=== PATIENT | male | born 1950 | race Caucasian/White ===

== ENCOUNTER 2018-08-23 07:02 | Emergency (ER) | payer MEDICARE, BC ==
[2018-08-23 07:21] VITALS: BP 132/88
--- NOTE | 2018-08-23 07:48 | UC ---
Ear Complaint HPI - HPI Summary HPI Summary: congestion and cough. There is ear pressure. No fever. there is hoarseness. - History of Current Complaint Chief Complaint: UCRespiratory Stated Complaint: SINUSES, CONGESTION, COUGH Time Seen by Provider: 08/23/18 07:35 Hx Obtained From: Patient Onset/Duration: Gradual Onset, Lasting Days Severity Initially: Moderate Severity Currently: Moderate Pain Intensity: 0 Aggravating Factors: Nothing Alleviating Factors: Nothing Associated Signs/Symptoms: Positive: URI Symptoms - Allergies/Home Medications Allergies/Adverse Reactions: Allergies Allergy/AdvReac Type Severity Reaction Status Date / Time No Known Allergies Allergy Verified 08/23/18 07:18 PMH/Surg Hx/FS Hx/Imm Hx Previously Healthy: No - No prior lung disease or asthma and no heart disease. - Surgical History Surgical History: Yes Surgery Procedure, Year, and Place: Right knee surgery. Bowel resection d/t colon Ca - Family History Known Family History: Positive: Non-Contributory - Social History Alcohol Use: Occasionally Substance Use Type: None Smoking Status (MU): Never Smoked Tobacco Review of Systems All Other Systems Reviewed And Are Negative: Yes ENT: Positive: Sore Throat, Ear Ache, Sinus Congestion. Negative: Sinus Pain/ Tenderness Respiratory: Positive: Cough Physical Exam Triage Information Reviewed: Yes Appearance: Well-Appearing, No Pain Distress, Well-Nourished Vital Signs: Initial Vital Signs Temp 98.3 F 08/23/18 07:18 Pulse 92 08/23/18 07:18 Resp 17 08/23/18 07:18 BP 132/88 08/23/18 07:18 Pulse Ox 98 08/23/18 07:18 Vital Signs Reviewed: Yes Eyes: Positive: Conjunctiva Clear. Negative: Conjunctiva Inflamed ENT: Positive: Pharynx normal, Nasal congestion, TM dull, Hoarse voice, Uvula midline. Negative: Nasal drainage, TM bulging, TM red, Tonsillar swelling, Tonsillar exudate, Trismus, Muffled voice, Dental tenderness, Sinus tenderness Neck: Positive: Supple, Nontender, No Lymphadenopathy Respiratory: Positive: Chest non-tender, Lungs clear, Normal breath sounds, No respiratory distress, No accessory muscle use. Negative: Respiratory distress, Decreased breath sounds, Accessory muscle use, Crackles, Rhonchi, Stridor, Wheezing Cardiovascular: Positive: RRR, No Murmur, Pulses Normal, Brisk Capillary Refill. Negative: Tachycardia, Bradycardia Abdomen Description: Positive: No Organomegaly, Soft. Negative: Distended, Guarding Musculoskeletal: Positive: Strength Intact, ROM Intact, No Edema Neurological: Positive: Alert, Muscle Tone Normal. Negative: Fatigued Psychological: Positive: Age Appropriate Behavior Skin: Negative: Rashes Ear Complaint Course/Dx - Differential Dx/Diagnosis Provider Diagnosis: Viral URI with cough Discharge - Sign-Out/Discharge Documenting (check all that apply): Patient Departure All imaging exams completed and their final reports reviewed: No Studies - Discharge Plan Condition: Good Disposition: HOME Prescriptions: Acetaminop/Codeine 30 MG TAB* [Tylenol/Codeine 30 MG TAB*] 1 tab PO BEDTIME PRN #7 tab MDD 1 PRN Reason: Cough Benzonatate CAP* [Tessalon 100 MG CAP*] 100 mg PO TID PRN #20 cap PRN Reason: Cough DOXYcycline CAP(*) [DOXYcycline 100MG CAP(*)] 100 mg PO DAILY #20 cap Patient Education Materials: Upper Respiratory Infection (ED) Referrals: Brain Dennis MD [Primary Care Provider] - If Needed - Billing Disposition and Condition Condition: GOOD Disposition: Home
== END 2018-08-23 07:49 | disposition home or self-care (01) ==
LOC: UCCORT 07:02
DX: J06.9 Acute upper respiratory infection, unspecified (principal); R05 Cough
CPT/HCPCS: 99202; G0463

== ENCOUNTER 2019-01-31 19:32 | Emergency (ER) | payer MEDICARE, BC ==
[2019-01-31 19:51] VITALS: BP 141/81
[2019-01-31] MEDS ORDERED: Sulfamethox/Trimethoprim DS 800/160* TAB PO ONE (19:58)
--- NOTE | 2019-01-31 20:00 | UC ---
Complaint Male HPI - HPI Summary HPI Summary: 69-year-old male comes in with a chief complaint of chills and burning with urination for the last 2 days. Also has some low back pain. Denies any anterior abdominal pain. Bowels been normal has not seen any blood in his stools. Patient reports he had a urinary tract infection about 15 years ago and this symptoms remind him of urinary tract infection. - History of Current Complaint Chief Complaint: UCGU Stated Complaint: CHILLS/URINARY Time Seen by Provider: 01/31/19 19:47 Pain Intensity: 0 - Allergies/Home Medications Allergies/Adverse Reactions: Allergies Allergy/AdvReac Type Severity Reaction Status Date / Time No Known Allergies Allergy Verified 01/31/19 19:51 Home Medications: Home Medications Sildenafil (NF) [Viagra (NF)] 25 mg PO SEE INSTRUCTIONS 01/31/19 [History Confirmed 01/31/19] PMH/Surg Hx/FS Hx/Imm Hx Previously Healthy: Yes - BPH Endocrine History: Dyslipidemia - Surgical History Surgical History: Yes Surgery Procedure, Year, and Place: Right knee surgery. Bowel resection d/t colon Ca - Family History Known Family History: Positive: Non-Contributory - Social History Alcohol Use: Daily Alcohol Amount: 1 glass daily Substance Use Type: None Smoking Status (MU): Never Smoked Tobacco Review of Systems All Other Systems Reviewed And Are Negative: Yes Constitutional: Positive: Chills Skin: Positive: Negative Eyes: Positive: Negative ENT: Positive: Negative Respiratory: Positive: Negative Cardiovascular: Positive: Negative Gastrointestinal: Positive: Negative Genitourinary: Positive: Dysuria Motor: Positive: Negative Neurovascular: Positive: Negative Musculoskeletal: Positive: Other: - SEE HPI Neurological: Positive: Negative Psychological: Positive: Negative Is Patient Immunocompromised?: No Physical Exam Triage Information Reviewed: Yes Appearance: Well-Appearing, No Pain Distress, Well-Nourished Vital Signs: Initial Vital Signs Temp 98.6 F 01/31/19 19:48 Pulse 120 01/31/19 19:48 Resp 16 01/31/19 19:48 BP 141/81 01/31/19 19:48 Pulse Ox 98 01/31/19 19:48 Vital Signs Reviewed: Yes Eye Exam: Normal Eyes: Positive: Conjunctiva Clear Neck: Positive: Supple Respiratory: Positive: Lungs clear, Normal breath sounds, No respiratory distress Cardiovascular: Positive: Tachycardia Abdomen Description: Positive: Nontender, Other: - MILD TENDERNESS MID LOW BACK. Negative: CVA Tenderness (R), CVA Tenderness (L) Musculoskeletal Exam: Normal Musculoskeletal: Positive: Strength Intact, ROM Intact Neurological Exam: Normal Neurological: Positive: Alert, Muscle Tone Normal Psychological Exam: Normal Psychological: Positive: Age Appropriate Behavior Skin Exam: Normal Complaint Male Course/Dx - Differential Dx/Diagnosis Provider Diagnosis: UTI (urinary tract infection) Discharge - Sign-Out/Discharge Documenting (check all that apply): Patient Departure All imaging exams completed and their final reports reviewed: No Studies - Discharge Plan Condition: Stable Disposition: HOME Prescriptions: Sulfamethox/Trimethoprim DS* [Bactrim DS 800/160 TAB*] 1 tab PO BID #26 tab Patient Education Materials: Urinary Tract Infection in Men (ED) Referrals: Brain Dennis MD [Primary Care Provider] - Additional Instructions: FOLLOW UP WITH YOUR DOCTOR. GET RECHECKED SOONER IF YOUR CONDITION WORSENS; FEVERS, PAIN, YOU FEEL ILL OR ANY QUESTIONS OR CONCERNS. - Billing Disposition and Condition Condition: STABLE Disposition: Home
== END 2019-01-31 20:09 | disposition home or self-care (01) ==
LOC: UCCORT 19:32
DX: N39.0 Urinary tract infection, site not specified (principal)
CPT/HCPCS: 81003; 87086; 99212; A9270-GY; G0463